=== PATIENT | male | born 1945 | race Two or more races ===

== ENCOUNTER 2020-07-20 10:55 | Outpatient (CLI) | payer OTHER | END 2020-07-20 13:56 | disposition home or self-care (01) | LOC: SONOGRAMA 10:55 | PROVIDERS: ATTEND Pathology Anatomic Pathology & Clinical Pathology | DX: E04.2 Nontoxic multinodular goiter (principal) ==

== ENCOUNTER 2020-10-02 11:16 | Outpatient (CLI) | payer OTHER | END 2020-10-02 12:20 | disposition home or self-care (01) | LOC: SONOGRAMA 11:16 | PROVIDERS: ATTEND Pathology Anatomic Pathology & Clinical Pathology | DX: E04.2 Nontoxic multinodular goiter (principal) ==

== ENCOUNTER 2024-08-20 07:16 | Outpatient (CLI) | payer OTHER | END 2024-08-20 07:20 | disposition home or self-care (01) | LOC: TOM 07:16 | PROVIDERS: ATTEND Internal Medicine Gastroenterology | DX: R19.5 Other fecal abnormalities (principal) ==